=== PATIENT | female | born 1995 | race Caucasian/White ===

== ENCOUNTER 2017-09-18 18:30 | Emergency (ER) | END 2017-09-18 20:54 | disposition home or self-care (01) ==

== ENCOUNTER 2018-05-26 07:02 | Emergency (ER) | payer OTHER ==
[~2018-05-26] VITALS: Ht 154.9 cm; Wt 74.1 kg
[~2018-05-26 07:02] MED LIST: ONDA4TAB14 PO; PREN1TAB79 PO
[2018-05-26 07:06] VITALS: Ht 154.9 cm; Wt 74.1 kg
[2018-05-26] MEDS ORDERED: AZITHROMYCIN 250 MG TAB PO STA (08:30)
[2018-05-26] MEDS ORDERED: CEFTRIAXONE 250 MG INJ IM STA (08:30)
--- NOTE | 2018-05-26 09:08 | ERD ---
ER Documentation Chief Complaint Chief Complaint VAGINAL DISCHARGE , BUMPS ON GENITAL AREA HPI This is a 22-year-old female who presents ED with complaints of vaginal discharge times 2 days. Patient recently had a new sexual partner 1 week ago and started having vaginal discharge 2 days ago. Last menstrual period was May 07, 2018. Patient had unprotected sex with a new partner. Denies fever, chills, vaginal pain, dysuria, hematuria, nausea, vomiting, diarrhea, constipation, abdominal pain, melena, hematochezia, hematemesis and other symptoms. No known drug allergies. ROS All systems reviewed and are negative except as per history of present illness. Medications Home Meds Active Scripts Ondansetron (Ondansetron Odt) 4 Mg Tab.rapdis, 4 MG PO Q6H PRN for NAUSEA AND/OR VOMITING, #10 TAB Prov:SAVANNA,JAM 09/18/17 Reported Medications Vit W-Ca,Fe,FA(<1 mg) ( Vitamins) 1 Each Tablet, 1 EACH PO DAILY, TAB 12/01/15 Allergies Allergies: Coded Allergies: No Known Allergy (Unverified , 05/26/18) PMhx/Soc Medical and Surgical Hx: pt denies Medical Hx, pt denies Surgical Hx Hx Alcohol Use: No Hx Substance Use: No Hx Tobacco Use: No Smoking Status: Never smoker FmHx Family History: No diabetes Physical Exam Vitals Vital Signs Date Temp Pulse Resp B/P (MAP) Pulse Ox O2 O2 Flow FiO2 Time Delivery Rate 05/26/18 98.1 89 18 133/90 99 07:06 (104) Physical Exam Physical Exam Vitals signs: Reviewed by me. General: Well developed, well nourished, in no acute distress. Patient is awake and alert. Head: Normocephalic, atraumatic. Eyes: Normal conjunctiva, Pupils PERRLA, EOM intact grossly ENT: Pharynx is clear, Moist mucous membranes, external ears, nose and mouth normal Neck: Supple, no masses, lymphadenopathy or JVD Respiratory: Clear to auscultation bilaterally with no wheezing, rhonchi, rales, no distress Cardiovascular: RRR, no murmurs, rubs, or gallops Abdominal: Soft, non-tender, non-distended, no peritoneal signs : Pelvic Exam: [employer] present Abdomen: Nontender External Genitalia: Normal Skin Speculum: Normal vaginal mucosa, there is milky white vaginal discharge, faint erythema of cervix present Bimanual: No adnexal masses or tenderness, No CMT Back: No midline tenderness. No flank tenderness Neurologic: Alert and oriented, moving all extremities, normal speech, no focal weakness, no cerebellar signs. Normal mentation Skin: warm and dry, No rash Psych: Normal mood Results 24 hrs Laboratory Tests Test 05/26/18 04:45 05/26/18 08:51 05/26/18 08:53 Urine Color YELLOW Urine Clarity SLIGHTLY CLOUDY Urine pH 6.0 Urine Specific Ellerbe 1.006 Urine Ketones 1+ mg/dL Urine Nitrite NEGATIVE mg/dL Urine Bilirubin NEGATIVE mg/dL Urine Urobilinogen NEGATIVE mg/dL Urine Leukocyte Esterase 1+ Joe/ul Urine Microscopic RBC 12 /HPF Urine Microscopic WBC 6 /HPF Urine Squamous Epithelial Cells MODERATE /HPF Urine Bacteria FEW /HPF Urine Hemoglobin 1+ mg/dL Urine Glucose NEGATIVE mg/dL Urine Total Protein NEGATIVE mg/dl Bedside Urine pH (LAB) 6.5 Bedside Urine Protein (LAB) Negative Bedside Urine Glucose (UA) Negative Bedside Urine Ketones (LAB) 1+ Bedside Urine Blood Trace-lysed Bedside Urine Nitrite (LAB) Negative Bedside Urine Leukocyte Esterase 2+ (L POC Beta HCG, Qualitative NEGATIVE Current Medications Medications Dose Sig/Annalisa Start Time Status Last (Trade) Ordered Route PRN Stop Time Admin Dose Reason Admin 1,000 mg ONCE STAT 05/26/18 DC 05/26/18 Azithromycin PO 08:30 08:53 (Zithromax) 05/26/18 08:32 Ceftriaxone 250 mg ONCE STAT 05/26/18 DC 05/26/18 Sodium IM 08:30 08:53 (Rocephin) 05/26/18 08:32 Procedures/MDM LAB INTERPRETATION: Urinalysis is remarkable for 12 RBC, 6 RBC, few bacteria, moderate squamous epithelial cells, 1+ leukocyte esterase, Urine negative Wet mount is remarkable for 1+ leukocyte, 1+ white blood cells, 3+ bacteria, 2+ epithelial cells, clue cells seen, ER COURSE: The patient was given ceftriaxone and azithromycin The medication was well tolerated and the patient reports improvement in symptoms. The patient was stable throughout ED course. I kept the patient and/or family informed of laboratory and diagnostic imaging results throughout the emergency room course. The patient was promptly evaluated and a treatment plan was devised based on H&P and other data. This plan was discussed with the patient who agreed and had no further questions or concerns prior to discharge. MEDICAL DECISION MAKIN-year-old female presents ED with vaginal discharge times 2 days. Patient recently had a new sexual partner 1 week ago and started experiencing the milky white discharge 2 days ago. Patient was treated for gonorrhea and chlamydia prophylactically in the emergency department and given ceftriaxone and 1 g of azithromycin. Gonorrhea and chlamydia testing are pending. Urinalysis is remarkable for leukocyte esterase and bacteria. Wet mount is remarkable for clue cells as well as bacteria. Will treat patient for UTI as well as bacterial vaginosis. Patient was advised to perform safe sex and use protection when having intercourse. There is no cervical motion tenderness and no evidence of PID. At this time there is no genitourinary emergency. No evidence of tubo- ovarian abscess, ectopic , ovarian torsion, appendicitis, small bowel obstruction, perforated viscus, among others. She was advised to follow-up with gynecology or go to [facility] to have Pap smear and full STD testing performed. Patient was also advised follow-up with primary care in the next 48 hours. Return to ED with any worsening symptoms DISPOSITION PLAN: We discussed follow up with the patient's primary care doctor within 24 to 48 hours. Patient counseled regarding my diagnostic impression and care plan. Prior to discharge all questions answered. Pt agrees with treatment plan and understands strict return precautions. Precautionary instructions provided including instructions to return to the ER if not improving or for any worsening or changing symptoms or concerns. SPECIALIST FOLLOW UP RECOMMENDED: [employer], [facility] Patient has been advised to follow up with primary care in 1-2 days. Disclaimer: Inadvertent spelling and grammatical errors are likely due to EHR/dictation software use and do not reflect on the overall quality of patient care. Also, please note that the electronic time recorded on this note does not necessarily reflect the actual time of the patient encounter. Departure Diagnosis: Primary Impression: Vaginal discharge Additional Impressions: Exposure to STD UTI (urinary tract infection) Urinary tract infection type: site unspecified Hematuria presence: without hematuria Qualified Codes: N39.0 - Urinary tract infection, site not specified Bacterial vaginosis Condition: Stable Patient Instructions: If You Think You Have an STD, Preventing Vaginitis, Understanding Urinary Tract Infections (UTIs), Vaginal Infection: Bacterial Vaginosis Referrals: [facility] REFERRAL LIST [facility] Additional Instructions: Patient advised to return to the ED immediately for new or worsening symptoms. Patient advised to follow up with primary care provider in the next 24-48 hours. Patient verbalized understanding and agrees with treatment plan and course of action. If patient has no primary care they may follow up with one of the [facility] listed on the following page or one of the options listed below [facility] + [facility] [address] [place] [id number] or [facility] [address] [place] [address] or [facility] [address] [place] [address] SELIN HAUSER PA-C May 26, 2018 09:08
[2018-05-26] MEDS ORDERED: METR500T PO (10:55)
[2018-05-26] MEDS ORDERED: CEPH-443 PO (10:55)
[2018-05-26 11:02] VITALS: BP 121/77; PULSE 80; RESP 18
== END 2018-05-26 11:02 | disposition home or self-care (01) ==
LOC: FTE 07:02
DX: N76.0 Acute vaginitis (principal); N39.0 Urinary tract infection, site not specified; Z20.2 Contact with and (suspected) exposure to infections with a predominantly sexual mode of transmission
CPT/HCPCS: 81001; 81025; 87070; 87210; 87591; J0696; Z7610; 81003; 96372